=== PATIENT | female | born 1985 | race Two or more races ===

== ENCOUNTER 2021-01-25 22:14 | Emergency (ER) | payer SELFPAY ==
[~2021-01-25] VITALS: Ht 162.6 cm; Wt 70.2 kg
[2021-01-25 22:17] VITALS: BP 161/101
--- NOTE | 2021-01-26 00:22 | NUR ---
PT NOT IN LOBBY X 1
--- NOTE | 2021-01-26 00:47 | NUR ---
PT NOT IN THE LOBBY WHEN CALLED FOR ROOM. 2ND ATTEMPT
--- NOTE | 2021-01-26 01:02 | NUR ---
Pt not in lobby x3. lwbs
== END 2021-01-26 01:04 | disposition left against medical advice (07) ==
LOC: ED 22:34
DX: R10.9 Unspecified abdominal pain (principal); Z53.21 Procedure and treatment not carried out due to patient leaving prior to being seen by health care provider

== ENCOUNTER 2021-05-30 00:01 | Emergency (ER) | payer MEDICAID ==
[~2021-05-30] VITALS: Ht 162.6 cm; Wt 76.6 kg
[~2021-05-30 00:01] MED LIST: ASPI-963 PO; ATOR40TA78 PO; GABA300C PO; HYDR-2214 PO; HYDR-3248 PO; INSU100C SQ-INSULIN; INSU100V8 SQ; LIPA1CAP4 PO; METO50TA82 PO; ONDA4TAB13 SL; ONDA4TAB7 PO; PANT40TA3 PO; protonix PO
[2021-05-30 01:23] LABS: BASOPHILS % (AUTO) 1 % (0-1); EOSINOPHILS % (AUTO) 3 % (1-7); LYMPHOCYTES % (AUTO) 27 % (22-44); MEAN CORPUSCULAR HEMOGLOBIN 23.4 pg (27.0-34.8); MEAN CORPUSCULAR HGB CONC 31.4 g/dL (32.4-35.8); MEAN PLATELET VOLUME 7.3 fL (7.4-10.4); MONOCYTES % (AUTO) 9 % (2-9); NEUTROPHILS % (AUTO) 62 % (42-75); PLATELET COUNT 287 x10^3/uL (130-400); RED BLOOD COUNT 4.12 x10^6/uL (3.82-5.3); RED CELL DISTRIBUTION WIDTH 17.5 % (9.6-15.2)
[2021-05-30 01:29] VITALS: BP 153/93
[2021-05-30] MEDS ORDERED: HYDROmorphone 1 MG/ML, 1ML INJ IM ONE (01:30)
[2021-05-30] MEDS ORDERED: ONDANSETRON ODT 4 MG PO ONE (01:30)
[2021-05-30] MEDS ORDERED: ONDANSETRON ODT 4 MG ONE (01:34)
[2021-05-30 01:35] LABS: ALANINE AMINOTRANSFERASE 63 U/L (12-78); ALBUMIN 2.7 g/dL (3.4-5.0); ANION GAP 9 mmol/L (5-15); CALCIUM 8.5 mg/dL (8.5-10.1); CHLORIDE 108 mmol/L (98-107); CREATININE 0.78 mg/dL (0.55-1.02)
[2021-05-30] MEDS ORDERED: HYDROmorphone 2 MG/ML, 1ML ONE (01:36)
[2021-05-30 01:37] LABS: ALKALINE PHOSPHATASE 146 U/L (45-117); BILIRUBIN,TOTAL 0.1 mg/dL (0.2-1.0); TOTAL PROTEIN 6.7 g/dL (6.4-8.2)
== END 2021-05-30 02:37 | disposition home or self-care (01) ==
LOC: ED 01:07
DX: R10.13 Epigastric pain (principal); R11.0 Nausea; Z72.9 Problem related to lifestyle, unspecified; E11.9 Type 2 diabetes mellitus without complications; I10 Essential (primary) hypertension; Z86.73 Personal history of transient ischemic attack (TIA), and cerebral infarction without residual deficits; Z90.49 Acquired absence of other specified parts of digestive tract
CPT/HCPCS: 36415; 80053; 83690; 85025; 96372; 99283; J1170; Q0162